=== PATIENT | male | born 1945 | race Caucasian/White ===

== ENCOUNTER 2024-02-13 04:26 | Inpatient (IN) | payer OTHER ==
[~2024-02-13] VITALS: Ht 170.2 cm; Wt 49.0 kg
[2024-02-13] VITALS (13 sets, daily range): BP systolic 108–143; BP diastolic 55–81; TEMP 97.5–98.1; O2SAT 89–100
[2024-02-13] MEDS ORDERED: DILTIAZEM HCL 25 MG IV ONE (04:53)
[2024-02-13 04:54] LABS: BASOPHILS # (AUTO) 0.1 K/uL (0.0-0.2); BASOPHILS % (AUTO) 0.4 % (0.0-2.0); EOSINOPHILS % (AUTO) 0.2 % (0.0-6.0); HEMATOCRIT 33 % (39-51); HEMOGLOBIN 10.4 g/dL (13.5-17.5); LYMPHOCYTES # (AUTO) 1.5 K/uL (0.8-4.8); LYMPHOCYTES % (AUTO) 10.7 % (20.0-44.0); MEAN CORPUSCULAR HEMOGLOBIN 30 PG (26.0-33.0); MEAN CORPUSCULAR HGB CONC 32 g/dl (31.0-36.0); MEAN CORPUSCULAR VOLUME 96 fL (80-96); MONOCYTES % (AUTO) 6.9 % (2.0-12.0); NEUTROPHILS # (AUTO) 11.4 K/uL (1.8-8.9); NEUTROPHILS % (AUTO) 81.8 % (43.0-81.0); PLATELET COUNT (AUTO) 271 K/uL (150-450); RED BLOOD CELL COUNT(AUTO) 3.47 MIL/uL (4.5-6.0); RED CELL DISTRIBUTION WIDTH 17.1 % (11.5-15.0); WHITE BLOOD COUNT (AUTO) 13.9 K/uL (4.3-11.0)
[2024-02-13] MEDS ORDERED: methylPREDNISolone SOD SUCC 125 MG/2ML VIAL ONE (04:58)
[2024-02-13] MEDS: methylPREDNISolone SOD SUCC 125 MG/2ML VIAL IV ONE (05:01)
[2024-02-13 05:05] LABS: CALCIUM, SERUM 12.5 mg/dL (8.5-10.1); CARBON DIOXIDE 37 mmol/L (21-32); CHLORIDE 101 mmol/L (98-107); CREATININE 0.7 mg/dL (0.6-1.3); GLUCOSE 154 mg/dL (74-106); POTASSIUM 5.2 mmol/L (3.5-5.1); SODIUM SERUM 140 mmol/L (136-145); UREA NITROGEN, BLOOD 16 mg/dL (7-18)
[2024-02-13 05:10] LABS: INR 1.17 (0.91-1.10); PARTIAL THROMBOPLASTIN TIME 24.7 SEC (24.3-34.3); PROTHROMBIN TIME 12.3 SECS (9.2-11.1)
[2024-02-13 05:20] LABS: ALANINE AMINOTRANSFERASE 12 U/L (12-78); ALKALINE PHOSPHATASE 124 U/L (46-116); ASPARTATE AMINOTRANSFERASE 10 U/L (15-37); BILIRUBIN,DIRECT 0.2 mg/dL (0.0-0.2); BILIRUBIN,TOTAL 0.4 mg/dL (0.2-1.0); NT-PRO BNP 3129 pg/mL (0-125); TOTAL PROTEIN, SERUM 6.3 g/dL (6.4-8.2)
[2024-02-13 05:21] LABS: LACTIC ACID 4.7 mmol/L (0.4-2.0)
[2024-02-13] MEDS ORDERED: FUROSEMIDE 20 MG/2 ML VIAL ONE (05:27)
[2024-02-13] MEDS: IPRATROPIUM NEB FS 0.5 MG/2.5 ML AMPUL.NEB NEB ONE (05:35)
[2024-02-13] MEDS: FUROSEMIDE 40 MG/4 ML VIAL IV ONE (05:37)
[2024-02-13] MEDS ORDERED: CEFEPIME 1 GM VIAL ONE (05:39)
[2024-02-13] MEDS ORDERED: CALCIUM CHLORIDE 1,000 MG/10 ML DISP.SYRIN ONE (05:39)
[2024-02-13] MEDS ORDERED: IPRATROPIUM NEB FS 0.5 MG/2.5 ML AMPUL.NEB ONE (05:45)
[2024-02-13] MEDS: IV NS 0.9% 1,000 ML BAG IV ONE (05:46)
[2024-02-13] MEDS: CEFEPIME 1 GM in IV D5W 50 ML IV ONE (05:46)
[2024-02-13] MEDS ORDERED: Z GUARD REMEDY 4 OZ OINT TP PRN (06:00)
[2024-02-13] MEDS ORDERED: ACETAMINOPHEN 325 MG TABLET PO PRN (06:00)
[2024-02-13] MEDS ORDERED: ONDANSETRON HCL/PF 4 MG/2 ML VIAL IVP PRN (06:00)
[2024-02-13] MEDS ORDERED: MAG HYDROX/AL HYDROX/SIMETH 30 ML UDC PO PRN (06:00)
[2024-02-13] MEDS ORDERED: MAGNESIUM HYDROXIDE 30 ML UDC PO PRN (06:00)
[2024-02-13] MEDS ORDERED: ENOXAPARIN SODIUM 40 MG/0.4 ML DISP.SYRIN SQ SCH (06:00)
[2024-02-13] MEDS: CALCIUM CHLORIDE 1,000 MG/10 ML DISP.SYRIN IV ONE (06:03)
[2024-02-13 06:09] LABS: ABG BASE EXCESS 5.9 mmol/L (-2.0-3.0); ABG OXYGEN SATURATION 85.6 % (94.0-98.0); ABG PCO2 66.1 mmHg (35.0-48.0); ABG PH 7.325 (7.350-7.450); ABG PO2 57.4 mmHg (83.0-108.0); ABG TOTAL HEMOGLOBIN 11.4 G/dL (13.5-17.5); COHb 0.3 % (0.5-1.5); MetHb 0.3 % (0.0-1.5); O2Hb 85.1 % (94.0-97.0); SITE, ABG RIGHT RADIAL
[2024-02-13] MEDS: DILTIAZEM HCL 50 MG IV IV ONE (07:04)
[2024-02-13] MEDS: VANCOMYCIN 750 MG in IV D5W 250 ML IV SCH (08:30)
[2024-02-13] MEDS ORDERED: ENOXAPARIN SODIUM 40 MG/0.4 ML DISP.SYRIN SQ ONE (08:59)
[2024-02-13] MEDS ORDERED: FUROSEMIDE 40 MG/4 ML VIAL ONE (09:27)
[2024-02-13] MEDS ORDERED: PANTOPRAZOLE 40 MG VIAL ONE (09:27)
[2024-02-13] MEDS: FUROSEMIDE 40 MG/4 ML VIAL IV SCH (09:30)
[2024-02-13] MEDS: PANTOPRAZOLE 40 MG VIAL IV SCH (09:30)
[2024-02-13] MEDS ORDERED: LATA7.5D EACHEYE (10:07)
[2024-02-13] MEDS ORDERED: PRED10TA PO (10:07)
[2024-02-13] MEDS ORDERED: ASPI-1169 PO (10:07)
[2024-02-13] MEDS ORDERED: FURO-145 PO (10:07)
[2024-02-13] MEDS ORDERED: GUAI600T53 PO (10:07)
[2024-02-13] MEDS ORDERED: SIME80TA15 PO (10:07)
[2024-02-13] MEDS ORDERED: AZIT250T13 PO (10:07)
[2024-02-13] MEDS ORDERED: DIGO125T PO (10:07)
[2024-02-13] MEDS ORDERED: CHOL200059 PO (10:07)
[2024-02-13] MEDS ORDERED: DILT30TA14 PO (10:07)
[2024-02-13] MEDS ORDERED: PANT20TA2 PO (10:07)
[2024-02-13] MEDS ORDERED: ASCO-352 PO (10:07)
[2024-02-13] MEDS ORDERED: MIRT-90 PO (10:07)
[2024-02-13] MEDS ORDERED: SULF1TAB48 PO (10:07)
[2024-02-13] MEDS ORDERED: CYAN100010 PO (10:07)
[2024-02-13] MEDS: CEFEPIME 1 GM in IV D5W 50 ML IV SCH (11:04)
[2024-02-13 12:18] LABS: ABG BASE EXCESS 8.1 mmol/L (-2.0-3.0); ABG OXYGEN SATURATION 99.7 % (94.0-98.0); ABG PCO2 57.3 mmHg (35.0-48.0); ABG PH 7.398 (7.350-7.450); ABG PO2 273.3 mmHg (83.0-108.0); ABG TOTAL HEMOGLOBIN 11.7 G/dL (13.5-17.5); COHb 0.2 % (0.5-1.5); MetHb 0.2 % (0.0-1.5); O2Hb 99.3 % (94.0-97.0); SITE, ABG LEFT BRACHIAL
[2024-02-13] MEDS: methylPREDNISolone SOD SUCC 125 MG/2ML VIAL IV SCH (12:54)
[2024-02-13] MEDS: NYSTATIN (PYXIS) 500,000 UNIT/5 ML ORAL.SUSP PO SCH (12:54)
[2024-02-13] MEDS: ALBUTEROL HALF STRENGTH 1.25 MG/3 ML VIAL.NEB NEB SCH (15:00)
[2024-02-13] MEDS: IPRATROPIUM NEB FS 0.5 MG/2.5 ML AMPUL.NEB NEB SCH (15:00)
[2024-02-13 15:39] LABS: ABG BASE EXCESS 10.7 mmol/L (-2.0-3.0); ABG OXYGEN SATURATION 95.8 % (94.0-98.0); ABG PCO2 54.1 mmHg (35.0-48.0); ABG PH 7.446 (7.350-7.450); ABG TOTAL HEMOGLOBIN 11.6 G/dL (13.5-17.5); COHb 0.3 % (0.5-1.5); MetHb 0.4 % (0.0-1.5); O2Hb 95.1 % (94.0-97.0); SITE, ABG LEFT BRACHIAL
[2024-02-13 15:41] LABS: APPEARANCE,URINE CLEAR (CLEAR); BILIRUBIN,URINE NEGATIVE (NEGATIVE); BLOOD, URINE NEGATIVE Ery/uL (NEGATIVE); KETONES,URINE NEGATIVE (NEGATIVE); LEUKOCYTE ESTERASE ,URINE NEGATIVE (NEGATIVE); NITRITE, URINE NEGATIVE (NEGATIVE); PROTEIN,URINE NEGATIVE (NEGATIVE); UGLUCOSE TRACE mg/dL (NEGATIVE); UROBILINOGEN,URINE 0.2 EU/dL (0.2)
[2024-02-13 15:49] LABS: COLOR,URINE LIGHT YELLOW (YELLOW)
[2024-02-13 15:51] LABS: ADD URINE CULTURE NO; BACTERIA,URINE Few /HPF (None Seen); MUCUS,URINE Few /LPF (None Seen); RBC,URINE 0-2 /HPF (0-2); SQUAMOUS EPITHELIAL CELL,UR 0-2 /HPF (None Seen); WBC,URINE 0-2 /HPF (0-3)
[2024-02-13] MEDS ORDERED: DILTIAZEM HCL 30 MG TABLET PO PRN (19:30)
[2024-02-13] MEDS: DIGOXIN 0.125 MG TABLET PO SCH (19:56)
[2024-02-13] MEDS: VANCOMYCIN 1 GM in IV D5W 250 ML IV SCH (20:03)
[2024-02-13] MEDS: CEFEPIME 2 GM in IV D5W 100 ML IV SCH (21:11)
[2024-02-14] VITALS (32 sets, daily range): BP systolic 107–144; BP diastolic 46–97; TEMP 97.5–98; O2SAT 96–100
[2024-02-14] MEDS ORDERED: DILTIAZEM HCL 30 MG TABLET PO SCH
[2024-02-14 05:03] LABS: BASOPHILS % (AUTO) 0.2 % (0.0-2.0); EOSINOPHILS % (AUTO) 0.1 % (0.0-6.0); HEMATOCRIT 35 % (39-51); HEMOGLOBIN 11.2 g/dL (13.5-17.5); LYMPHOCYTES # (AUTO) 0.3 K/uL (0.8-4.8); LYMPHOCYTES % (AUTO) 1.7 % (20.0-44.0); MEAN CORPUSCULAR HEMOGLOBIN 30 PG (26.0-33.0); MEAN CORPUSCULAR HGB CONC 32 g/dl (31.0-36.0); MEAN CORPUSCULAR VOLUME 95 fL (80-96); MONOCYTES # (AUTO) 0.5 K/uL (0.1-1.30); MONOCYTES % (AUTO) 2.4 % (2.0-12.0); NEUTROPHILS # (AUTO) 18.3 K/uL (1.8-8.9); NEUTROPHILS % (AUTO) 95.6 % (43.0-81.0); PLATELET COUNT (AUTO) 291 K/uL (150-450); RED CELL DISTRIBUTION WIDTH 17.3 % (11.5-15.0); WHITE BLOOD COUNT (AUTO) 19.2 K/uL (4.3-11.0)
[2024-02-14 05:17] LABS: CALCIUM, SERUM 12.8 mg/dL (8.5-10.1); CARBON DIOXIDE 38 mmol/L (21-32); CHLORIDE 98 mmol/L (98-107); CREATININE 0.9 mg/dL (0.6-1.3); GLUCOSE 136 mg/dL (74-106); MAGNESIUM 2.3 mg/dL (1.8-2.4); PHOSPHORUS 4.2 mg/dL (2.5-4.9); POTASSIUM 4.3 mmol/L (3.5-5.1); SODIUM SERUM 137 mmol/L (136-145); UREA NITROGEN, BLOOD 24 mg/dL (7-18)
[2024-02-14 06:28] LABS: CHOLESTEROL 173 mg/dL (<200); HDL CHOLESTEROL 45 mg/dL (40-60); LDL 102 mg/dL (0-99); TRIGLYCERIDES 122 mg/dL (30-150)
[2024-02-14] MEDS ORDERED: PANTOPRAZOLE 40 MG TABLET.DR PO SCH (09:00)
[2024-02-14] MEDS ORDERED: PANTOPRAZOLE 40 MG VIAL IV SCH (10:00)
[2024-02-14] MEDS: ENSURE ENLIVE 237 ML LIQUID (VANILLA) PO SCH (17:41)
[2024-02-15] MEDS ORDERED: PANTOPRAZOLE 40 MG VIAL IV SCH (09:00)
== END 2024-02-14 21:32 | disposition short-term general hospital (02) | DRG 871 ==
LOC: ER 04:33 → ICU 10:18
PROVIDERS: ADMIT Nurse Practitioner Acute Care
PROC: 5A09357 Assistance with Respiratory Ventilation, Less than 24 Consecutive Hours, Continuous Positive Airway Pressure (ICD-10-PCS; principal; 2024-02-13)
DX: A41.9 Sepsis, unspecified organism (principal); G92.8 Other toxic encephalopathy; J96.21 Acute and chronic respiratory failure with hypoxia; J96.22 Acute and chronic respiratory failure with hypercapnia; J69.0 Pneumonitis due to inhalation of food and vomit; J15.9 Unspecified bacterial pneumonia; I63.231 Cerebral infarction due to unspecified occlusion or stenosis of right carotid arteries; D68.69 Other thrombophilia; E44.0 Moderate protein-calorie malnutrition; R64 Cachexia; E87.20 Acidosis, unspecified; Z68.1 Body mass index [BMI] 19.9 or less, adult; C34.91 Malignant neoplasm of unspecified part of right bronchus or lung; J44.0 Chronic obstructive pulmonary disease with (acute) lower respiratory infection; R47.01 Aphasia; B37.0 Candidal stomatitis; J81.1 Chronic pulmonary edema; E87.5 Hyperkalemia; E88.09 Other disorders of plasma-protein metabolism, not elsewhere classified; I48.91 Unspecified atrial fibrillation; R62.7 Adult failure to thrive; Z87.891 Personal history of nicotine dependence; J43.9 Emphysema, unspecified; Z79.60 Long term (current) use of unspecified immunomodulators and immunosuppressants; Z74.09 Other reduced mobility; Z99.81 Dependence on supplemental oxygen; Z91.81 History of falling; R13.10 Dysphagia, unspecified; Z91.041 Radiographic dye allergy status; R29.702 NIHSS score 2
CPT/HCPCS: 36415; 36600; 70450-TC; 71045-TC; 80048-TC; 80061-TC; 80076-TC; 81001; 82803-TC; 83605-TC; 83735-TC; 83880; 84100-TC; 84484-TC; 85025-TC; 85378-TC; 85730-TC; 87040-TC; 87081-TC; 87086-TC; 92526; 92611-TC; 93307-TC; 94762-TC; 94799-TC; A4223; G0378; J0692; J1650; J1940; J2470; J2919; J3370; J3371; J3490; J7050; J7060